=== PATIENT | male | born 1980 | race Caucasian/White ===

== ENCOUNTER 2020-12-13 17:47 | Inpatient (IN) | payer OTHER, SELFPAY ==
[~2020-12-13] VITALS: Ht 177.8 cm; Wt 111.8 kg
[~2020-12-13 17:47] MED LIST: CEPH500C2 PO; NORCO5 PO
[2020-12-13 17:56] VITALS: BP_SYST 162
[2020-12-13] MEDS ORDERED: NACL 0.9% 1,000 ML IV ONE ×2 (18:30→19:45)
[2020-12-13 18:32] LABS: BILIRUBIN,URINE NEGATIVE (NEGATIVE); CLARITY/URINE CLEAR (CLEAR); COLOR,URINE YELLOW (YELLOW); GLUCOSE,URINE 3+ (NEGATIVE); KETONES,URINE TRACE (NEGATIVE); LEUKOCYTE ESTERASE ,URINE NEGATIVE (NEGATIVE); NITRITE, URINE NEGATIVE (NEGATIVE); PROTEIN URINE TRACE (NEGATIVE); UROBILINOGEN,URINE 0.2 (0.2-1.0)
[2020-12-13 18:37] LABS: RED BLOOD CELL COUNT(AUTO) 5.06 MIL/uL (4.2-6.2)
[2020-12-13 18:42] LABS: BLOOD, URINE TRACE (NEGATIVE)
[2020-12-13 18:44] LABS: RBC,URINE 0-3 /HPF (0-3); WBC,URINE NONE SEEN /HPF (0-3)
[2020-12-13 18:45] LABS: BACTERIA,URINE None Seen /HPF (None Seen); MUCUS,URINE None Seen /LPF (None Seen)
[2020-12-13 19:02] LABS: BASOPHILS # (AUTO) 0.1 K/uL (0.0-0.2); BASOPHILS % (AUTO) 1.1 % (0.0-2.0); EOSINOPHILS # (AUTO) 0.1 K/uL (0.0-0.4); EOSINOPHILS % (AUTO) 1.4 % (0.0-4.0); HEMATOCRIT 44.6 % (36-54); LYMPHOCYTES % (AUTO) 21.8 % (20.5-51.5); MEAN CORPUSCULAR HEMOGLOBIN 30 pg (27-31); MEAN CORPUSCULAR HGB CONC 34 % (32-36); MEAN CORPUSCULAR VOLUME 88 fL (79.0-98.0); MONOCYTES # (AUTO) 0.6 K/uL (0.0-1.0); MONOCYTES % (AUTO) 6.2 % (1.7-9.3); NEUTROPHILS # (AUTO) 6.3 K/uL (1.8-7.7); NEUTROPHILS % (AUTO) 69.5 % (40.0-70.0); RED CELL DISTRIBUTION WIDTH 13.1 % (9.0-15.0); WHITE BLOOD COUNT (AUTO) 9.1 K/uL (4.8-10.8)
[2020-12-13 19:03] LABS: HEMOGLOBIN 15.1 g/dL (14.0-18.0); PLATELET COUNT (AUTO) 252 K/uL (130-430)
[2020-12-13 19:14] LABS: CALCIUM 9.3 mg/dL (8.4-11.0); CREATININE 1.75 mg/dL (0.55-1.30); POTASSIUM 4.5 mmol/L (3.5-5.1); TOTAL BILIRUBIN 0.6 mg/dL (0.0-1.0)
[2020-12-13 19:27] LABS: ALBUMIN 4.1 g/dL (3.4-4.8)
[2020-12-13] MEDS ORDERED: INSULIN REGULAR, HUMAN 10 UNITS/0.1 ML INJ ONE (20:14)
[2020-12-13] MEDS ORDERED: INSULIN REGULAR, HUMAN 10 UNITS/0.1 ML INJ IVP ONE (20:15)
[2020-12-13 21:10] LABS: CALCIUM 8.7 mg/dL (8.4-11.0); CREATININE 1.68 mg/dL (0.55-1.30); POTASSIUM 4.4 mmol/L (3.5-5.1)
[2020-12-13] MEDS ORDERED: FENO160 PO (22:35)
[2020-12-13] MEDS ORDERED: OMEP20CA15 PO (22:35)
[2020-12-13] MEDS ORDERED: ATEN100T PO (22:35)
[2020-12-13] MEDS ORDERED: LISI20TA30 PO (22:35)
[2020-12-13 23:28] VITALS: BP_SYST 134
[2020-12-13] MEDS: NACL 0.9% 1,000 ML IV SCH (23:54)
[2020-12-14] MEDS: INSULIN REGULAR, HUMAN 100 UNITS/ML, 10 ML VIAL (humuLIN R) SUBCUT PRN ×9 (00:22→23:50)
[2020-12-14 00:37] VITALS: BP_SYST 134
[2020-12-14 08:12] VITALS: BP_SYST 157
[2020-12-14] MEDS ORDERED: PANTOPRAZOLE SODIUM 40 MG TAB PO ONE (08:30)
[2020-12-14] MEDS: NACL 0.9% 1,000 ML IV SCH ×3 (08:31→18:30)
[2020-12-14] MEDS ORDERED: lisinopriL 20 MG TABLET PO ONE (10:00)
[2020-12-14 11:16] LABS: CREATININE 1.01 mg/dL (0.55-1.30); FREE T4 (FREE THYROXINE) 1.1 ng/dl (0.8-1.5); POTASSIUM 4.1 mmol/L (3.5-5.1); THYROID STIMULATING HORMONE 0.93 uIu/mL (0.36-3.74)
[2020-12-14 11:22] LABS: CALCIUM 6.8 mg/dL (8.4-11.0)
[2020-12-14] MEDS ORDERED: POTASSIUM CHLORIDE 20 MEQ TAB.PRT.SR PO PRN (11:45)
[2020-12-14 12:00] LABS: BASOPHILS # (AUTO) 0.1 K/uL (0.0-0.2); BASOPHILS % (AUTO) 1.1 % (0.0-2.0); EOSINOPHILS # (AUTO) 0.2 K/uL (0.0-0.4); EOSINOPHILS % (AUTO) 3.1 % (0.0-4.0); HEMATOCRIT 47.5 % (36-54); LYMPHOCYTES # (AUTO) 1.5 K/uL (1.0-5.5); LYMPHOCYTES % (AUTO) 23.6 % (20.5-51.5); MEAN CORPUSCULAR HEMOGLOBIN 29 pg (27-31); MEAN CORPUSCULAR HGB CONC 33 % (32-36); MEAN CORPUSCULAR VOLUME 88 fL (79.0-98.0); MONOCYTES # (AUTO) 0.4 K/uL (0.0-1.0); MONOCYTES % (AUTO) 6.4 % (1.7-9.3); NEUTROPHILS # (AUTO) 4.2 K/uL (1.8-7.7); NEUTROPHILS % (AUTO) 65.8 % (40.0-70.0); RED CELL DISTRIBUTION WIDTH 13.1 % (9.0-15.0); WHITE BLOOD COUNT (AUTO) 6.4 K/uL (4.8-10.8)
[2020-12-14] MEDS ORDERED: HYDROcodone/ACETAMIN 5-325 MG TAB (NORCO/ VICODIN) PO PRN (12:00)
[2020-12-14] MEDS ORDERED: ACETAMINOPHEN 500 MG TABLET PO PRN (12:00)
[2020-12-14] MEDS ORDERED: MORPHINE 2 MG/ML INJ. SYRINGE IVP PRN (12:00)
[2020-12-14 12:02] LABS: PLATELET COUNT (AUTO) 188 K/uL (130-430)
[2020-12-14 12:04] LABS: HEMOGLOBIN 15.6 g/dL (14.0-18.0)
[2020-12-14] MEDS: ACETAMINOPHEN 325 MG TABLET PO PRN (13:17)
[2020-12-14 14:00] VITALS: BP_SYST 142
[2020-12-14] MEDS ORDERED: CALCIUM GLUCONATE 1 GM in NS 100 ML IV ONE (15:30)
[2020-12-14 16:45] VITALS: BP_SYST 125
[2020-12-14 20:00] VITALS: BP_SYST 124
[2020-12-14] MEDS: ATENOLOL 50 MG TABLET (TENORMIN) PO SCH (20:33)
[2020-12-14] MEDS: FENOFIBRATE 200 MG PO SCH (20:36)
[2020-12-14] MEDS: HEPARIN SODIUM,PORCINE 5,000 UNITS/ML VIAL SUBCUT SCH (20:43)
[2020-12-15 01:15] VITALS: BP_SYST 119
[2020-12-15] MEDS: NACL 0.9% 1,000 ML IV SCH ×4 (01:39→17:58)
[2020-12-15] MEDS: INSULIN REGULAR, HUMAN 100 UNITS/ML, 10 ML VIAL (humuLIN R) SUBCUT PRN ×6 (02:05→23:21)
[2020-12-15 07:43] VITALS: BP_SYST 122
[2020-12-15] MEDS: PANTOPRAZOLE SODIUM 40 MG TAB PO SCH (08:04)
[2020-12-15] MEDS: HEPARIN SODIUM,PORCINE 5,000 UNITS/ML VIAL SUBCUT SCH ×2 (08:05→21:07)
[2020-12-15] MEDS: lisinopriL 20 MG TABLET PO SCH (09:31)
[2020-12-15 10:04] LABS: BASOPHILS # (AUTO) 0.1 K/uL (0.0-0.2); EOSINOPHILS # (AUTO) 0.2 K/uL (0.0-0.4); EOSINOPHILS % (AUTO) 3.9 % (0.0-4.0); HEMATOCRIT 39.3 % (36-54); HEMOGLOBIN 14.9 g/dL (14.0-18.0); LYMPHOCYTES # (AUTO) 1.4 K/uL (1.0-5.5); LYMPHOCYTES % (AUTO) 22.2 % (20.5-51.5); MEAN CORPUSCULAR HEMOGLOBIN 33 pg (27-31); MEAN CORPUSCULAR HGB CONC 38 % (32-36); MEAN CORPUSCULAR VOLUME 86 fL (79.0-98.0); MONOCYTES # (AUTO) 0.6 K/uL (0.0-1.0); MONOCYTES % (AUTO) 9.6 % (1.7-9.3); NEUTROPHILS % (AUTO) 63.3 % (40.0-70.0); PLATELET COUNT (AUTO) 384 K/uL (130-430); RED BLOOD CELL COUNT(AUTO) 4.57 MIL/uL (4.2-6.2); RED CELL DISTRIBUTION WIDTH 13.3 % (9.0-15.0); WHITE BLOOD COUNT (AUTO) 6.3 K/uL (4.8-10.8)
[2020-12-15 10:05] LABS: CALCIUM 8.2 mg/dL (8.4-11.0); CREATININE 1.07 mg/dL (0.55-1.30); PHOSPHORUS 1.8 mg/dL (2.7-4.5); POTASSIUM 4.1 mmol/L (3.5-5.1)
[2020-12-15] MEDS ORDERED: NAPH,MB-DB/K PH,MBDB 250 MG TAB PO ONE (12:00)
[2020-12-15 12:15] VITALS: BP_SYST 159
[2020-12-15 16:15] VITALS: BP_SYST 152
[2020-12-15 20:10] VITALS: BP_SYST 135
[2020-12-15] MEDS: FENOFIBRATE 200 MG PO SCH (21:00)
[2020-12-15] MEDS ORDERED: ATORVASTATIN 20 MG TABLET PO SCH (21:00)
[2020-12-15] MEDS: ATENOLOL 50 MG TABLET (TENORMIN) PO SCH (21:06)
[2020-12-15] MEDS: ACETAMINOPHEN 325 MG TABLET PO PRN (23:19)
[2020-12-16] VITALS: BP_SYST 133
[2020-12-16] MEDS: NACL 0.9% 1,000 ML IV SCH (01:52)
[2020-12-16] MEDS: INSULIN REGULAR, HUMAN 100 UNITS/ML, 10 ML VIAL (humuLIN R) SUBCUT PRN ×2 (03:22→07:03)
[2020-12-16 08:00] VITALS: BP_SYST 129
[2020-12-16] MEDS: PANTOPRAZOLE SODIUM 40 MG TAB PO SCH (08:59)
[2020-12-16] MEDS: HEPARIN SODIUM,PORCINE 5,000 UNITS/ML VIAL SUBCUT SCH (09:01)
[2020-12-16] MEDS: ACETAMINOPHEN 325 MG TABLET PO PRN (09:02)
[2020-12-16] MEDS ORDERED: LIP20 PO (09:03)
[2020-12-16] MEDS ORDERED: GLU850 PO (09:03)
[2020-12-16 09:11] LABS: BASOPHILS # (AUTO) 0.1 K/uL (0.0-0.2); BASOPHILS % (AUTO) 1.6 % (0.0-2.0); EOSINOPHILS # (AUTO) 0.2 K/uL (0.0-0.4); HEMOGLOBIN 14.9 g/dL (14.0-18.0); LYMPHOCYTES # (AUTO) 1.7 K/uL (1.0-5.5); LYMPHOCYTES % (AUTO) 30.5 % (20.5-51.5); MEAN CORPUSCULAR HEMOGLOBIN 31 pg (27-31); MEAN CORPUSCULAR HGB CONC 36 % (32-36); MEAN CORPUSCULAR VOLUME 87 fL (79.0-98.0); MONOCYTES # (AUTO) 0.4 K/uL (0.0-1.0); NEUTROPHILS # (AUTO) 3.3 K/uL (1.8-7.7); NEUTROPHILS % (AUTO) 57.9 % (40.0-70.0); PLATELET COUNT (AUTO) 181 K/uL (130-430); RED BLOOD CELL COUNT(AUTO) 4.82 MIL/uL (4.2-6.2); RED CELL DISTRIBUTION WIDTH 13.4 % (9.0-15.0); WHITE BLOOD COUNT (AUTO) 5.7 K/uL (4.8-10.8)
[2020-12-16] MEDS: lisinopriL 20 MG TABLET PO SCH (09:16)
[2020-12-16 09:45] LABS: CALCIUM 8.6 mg/dL (8.4-11.0); CREATININE 1.03 mg/dL (0.55-1.30); POTASSIUM 4.2 mmol/L (3.5-5.1)
[2020-12-16 10:50] VITALS: BP_SYST 141
== END 2020-12-16 11:15 | disposition home or self-care (01) | DRG 637 ==
LOC: SED 17:47 → STU 22:19
DX: E11.00 Type 2 diabetes mellitus with hyperosmolarity without nonketotic hyperglycemic-hyperosmolar coma (NKHHC) (principal); N17.0 Acute kidney failure with tubular necrosis; E87.1 Hypo-osmolality and hyponatremia; I10 Essential (primary) hypertension; E78.5 Hyperlipidemia, unspecified; K21.9 Gastro-esophageal reflux disease without esophagitis; E86.0 Dehydration; E66.9 Obesity, unspecified; Z20.822 Contact with and (suspected) exposure to COVID-19; E83.39 Other disorders of phosphorus metabolism; E83.51 Hypocalcemia; F10.10 Alcohol abuse, uncomplicated; F17.211 Nicotine dependence, cigarettes, in remission; Z79.899 Other long term (current) drug therapy; Z68.35 Body mass index [BMI] 35.0-35.9, adult
CPT/HCPCS: 36415; 36600; 71045; 80048; 80053; 80061; 81000; 82009; 82803-TC; 82962; 83036; 83605; 83735; 83880; 84100; 84439; 84443; 84484; 85025; 93005; 96361; 96374; 99285; G0378; J0610; J1644; J1815; J7030